=== PATIENT | male | born 1995 | race Caucasian/White ===

== ENCOUNTER 2019-01-08 21:00 | Emergency (ER) | payer BC ==
[2019-01-08] MEDS ORDERED: Alum Hydrox/Mag Hydrox/Simeth 15 ML, Lidocaine 2% 15 ML PO ONE ×2 (21:47)
--- NOTE | 2019-01-08 21:57 | EDM.PDOC ---
ED HPI GENERAL MEDICAL PROBLEM - General Chief Complaint: Respiratory Problem Stated Complaint: SOB Time Seen by Provider: 01/08/19 21:30 Source of Information: Reports: Patient History Limitations: Reports: No Limitations - History of Present Illness INITIAL COMMENTS - FREE TEXT/NARRATIVE: 23-year-old male was developed lower chest pain with breathing and lying down over the past 24 hours. No significant shortness of breath or cough. Denies nausea or vomiting. He took some ibuprofen and it didn't help. He looks comfortable. Onset: Gradual (Over the past 24 hours) Location: Reports: Chest Worsens with: Reports: Breathing, Other (Lying down makes it "unbearable".) Associated Symptoms: Reports: No Other Symptoms. Denies: Cough, Nausea/Vomiting , Shortness of Breath with breaths Pain Score (Numeric/FACES): 5 - Related Data Allergies Allergy/AdvReac Type Severity Reaction Status Date / Time No Known Allergies Allergy Verified 01/08/19 21:35 Home Meds: Home Meds NK [No Known Home Meds] 01/08/19 [History] Past Medical History HEENT History: Reports: Impaired Vision Gastrointestinal History: Reports: GERD Musculoskeletal History: Reports: Fracture Neurological History: Reports: Concussion Dermatologic History: Reports: Psoriasis - Infectious Disease History Infectious Disease History: Reports: Chicken Pox - Past Surgical History HEENT Surgical History: Reports: Adenoidectomy, Tonsillectomy Social & Family History - Tobacco Use Smoking Status *Q: Never Smoker - Caffeine Use Caffeine Use: Reports: Soda - Recreational Drug Use Recreational Drug Use: No ED ROS GENERAL - Review of Systems Review Of Systems: See Below Constitutional: Denies: Fever, Chills HEENT: Denies: Throat Pain Respiratory: Reports: Pleuritic Chest Pain. Denies: Shortness of Breath Cardiovascular: Reports: Chest Pain GI/Abdominal: Denies: Abdominal Pain, Constipation, Diarrhea, Nausea, Vomiting : Reports: No Symptoms Skin: Reports: No Symptoms Neurological: Reports: No Symptoms ED EXAM, GENERAL - Physical Exam Exam: See Below Exam Limited By: No Limitations General Appearance: Alert, No Apparent Distress Eye Exam: Bilateral Eye: Normal Inspection Respiratory/Chest: No Respiratory Distress, Lungs Clear, Other (Patient does have pain with inspiration) Cardiovascular: Regular Rate, Rhythm, No Murmur. No: Bradycardia, Tachycardia GI/Abdominal: Soft, Non-Tender Neurological: Alert, Oriented Psychiatric: Normal Affect, Normal Mood Course - Vital Signs Last Recorded V/S: Last Vital Signs Temp 97.9 F 01/08/19 21:39 Pulse 57 L 01/08/19 21:39 Resp 14 01/08/19 21:39 BP 149/76 H 01/08/19 21:39 Pulse Ox 100 01/08/19 21:39 - Orders/Labs/Meds Meds: Medications Discontinued Medications Generic Name Dose Route Start Last Admin Trade Name Michael PRN Reason Stop Dose Admin Al Hydroxide/Mg Hydroxide 15 0 ml 01/08/19 21:47 01/08/19 21:57 ml/ Lidocaine HCl 15 ml PO 01/08/19 21:48 15 ml ONETIME ONE Administration - Re-Assessments/Exams Free Text/Narrative Re-Assessment/Exam: 01/08/19 21:57 Patient was given a GI cocktail. 01/08/19 22:26 Patient claims that he had significant improvement with the GI cocktail, he can still feel some discomfort when laying down but it's much improved. I recommended 40 mg of omeprazole twice daily for the next 3 days, then one dose daily 20 mg for the next several weeks. He'll return in the next 48 hours if worsening despite treatment. Departure - Departure Time of Disposition: 22:47 Disposition: Home, Self-Care 01 Condition: Good Clinical Impression: Gastritis Qualifiers: Gastritis type: unspecified gastritis Chronicity: acute Gastritis bleeding: without bleeding Qualified Code(s): K29.00 - Acute gastritis without bleeding Acid reflux disease Qualifiers: Esophagitis presence: esophagitis presence not specified Qualified Code(s): K21.9 - Gastro-esophageal reflux disease without esophagitis - Discharge Information Instructions: Gastritis, Adult, [id number] Referrals: PCP,None [Primary Care Provider] - Forms: ED Department Discharge Care Plan Goals: Try 40 mg of omeprazole twice daily for the next 3 days, then 20 mg a day for 2 weeks. Return anytime if worsening despite treatment, or consider rechecking in 5-7 days if not improving satisfactorily.
== END 2019-01-08 22:48 | disposition home or self-care (01) ==
LOC: JP.ED 21:00
DX: K29.00 Acute gastritis without bleeding (principal); K21.9 Gastro-esophageal reflux disease without esophagitis
CPT/HCPCS: 99284; A9270